=== PATIENT | male | born 1965 | race Caucasian/White ===

== ENCOUNTER → 2017-11-29 12:06 | Outpatient (CLI) | payer OTHER, SELFPAY ==
[2017-11-29 13:13] LABS: Lithium < 0.2 mmol/L (0.6-1.2)
[2017-11-29 13:15] LABS: Albumin 4.7 g/dL (3.5-5.0); Blood Urea Nitrogen 19 mg/dL (9-20); Calcium 9.8 mg/dL (8.4-10.2); Carbon Dioxide 30 mmol/L (22-32); Chloride 102 mmol/L (98-107); Estimated Glomerular Filt Rate > 60.0 mL/min (>60); Glucose 91 mg/dL (70-100); HEMOLYSIS < 15 (0-50); Potassium 4.3 mmol/L (3.4-5.1); Sodium 143 mmol/L (137-145)
[2017-11-29 13:48] LABS: Thyroid Stimulating Hormone 0.82 uIU/mL (0.47-4.68)
== END ==
PROVIDERS: Visit Provider Specialist
DX: R89.2 Abnormal level of other drugs, medicaments and biological substances in specimens from other organs, systems and tissues (principal)
CPT/HCPCS: 36415; 80069; 80178; 84443